=== PATIENT | female | born 1985 | race Caucasian/White ===

== ENCOUNTER 2016-04-16 05:49 | Day surgery (SDC) | payer MEDICAID ==
--- NOTE | 2016-04-15 09:50 | PREOPHP ---
DATE OF ADMISSION: 04/16/2016 She is to be admitted tomorrow, 04/16/2016, for a laparoscopic tubal ligation. HISTORY OF PRESENT ILLNESS: This is a 31-year-old female, 7, para 4 with 3 spontaneous abor tions who has requested sterilization on the basis of multiparity. Laparoscopic tubal ligation was discussed at great length at the office in detail. The alternatives, the benefits, the risks, and p ossible complications of this procedure as well as the 1% failure rate of it was discussed in detail . She was allowed to ask questions, and all her questions were answered to her satisfaction, and tyrese barragan signed the appropriate surgical informed consent. PAST MEDICAL HISTORY: The patient denies any medical problems. Denies cardiovascular disease, hype rtension, diabetes, renal disease, liver disease, thyroid disease, or neurological problems. ALLERGIES: SHE HAS NO KNOWN ALLERGIES. MEDICATIONS: Takes no medications on a regular basis. FAMILY HISTORY: Noncontributory. REVIEW OF SYSTEMS: A 12-point review of systems is noncontributory. PHYSICAL EXAMINATION: GENERAL: Well-developed and nourished, in no distress, alert and oriented x3. Height 5 feet 3 inch es and a weight 153 pounds. VITAL SIGNS: Showed the temperature to be 98, blood pressure 107/72, respirations are 16 per minute , pulse is 72 per minute regular. HEENT: Within normal limits. Pupils are PERRLA. NECK: Supple. Thyroid is nonpalpable. There is no lymphadenopathy. BREASTS: Show no masses or lumps. Nipples are normal. LUNGS: Clear to percussion and auscultation. HEART: Reveals normal sinus rhythm without a murmur. ABDOMEN: Soft without organomegaly or hernias. PELVIC: Normal external genitalia. Vagina is normal. Cervix is normal without lesions. Bimanual exam, the uterus small, firm. There are no adnexal masses present. EXTREMITIES: Lower extremities within normal limits. NEUROLOGIC: Normal. IMPRESSION: Multiparity. The patient desires sterilization, is to be admitted for laparoscopic tub al ligation under general anesthesia, possible laparotomy if necessary tomorrow, 04/16/2016. Dictated By: FAVIAN HUNTER/DINORA Conf#: [id number] DID#: [id number]
[2016-04-15 10:59] VITALS: BMI 27.3
[2016-04-15 13:04] LABS: BASOPHILS % 0.5 % (0.0-2.0); EOSINOPHILS # 0.2 10^3/ul (0.0-0.5); EOSINOPHILS % 2.7 % (0.0-7.0); HEMATOCRIT 39.6 % (37.0-47.0); LYMPHOCYTES # 2.5 10^3/ul (0.8-2.9); LYMPHOCYTES % 34.1 % (15.0-51.0); MEAN CORPUSCULAR HGB CONC 32.8 g/dl (32.0-37.0); MEAN CORPUSCULAR VOLUME 85.3 fl (82.0-101.0); MEAN PLATELET VOLUME 8.4 fl (7.4-10.4); MONOCYTE # 0.5 10^3/ul (0.3-0.9); MONOCYTES % 6.2 % (0.0-11.0); NEUTROPHIL # 4.2 10^3/ul (1.6-7.5); NEUTROPHILS % 56.5 % (39.0-77.0); PLATELET COUNT 322 10^3/UL (140-440); RED BLOOD COUNT 4.65 10^6/ul (4.20-5.40); RED CELL DISTRIBUTION WIDTH 16.4 % (11.5-14.5); UNCORRECTED WBC 7.4 10^3/ul (4.8-10.8); WHITE BLOOD COUNT 7.4 10^3/ul (4.8-10.8)
[2016-04-15 13:05] LABS: ADD UMIC YES; URINE BILIRUBIN (Dip) NEGATIVE (NEGATIVE); URINE BLOOD (Dip) NEGATIVE (NEGATIVE); URINE COLOR LT. YELLOW (YELLOW); URINE GLUCOSE (Dip) NEGATIVE (NEGATIVE); URINE KETONES (Dip) NEGATIVE (NEGATIVE); URINE LEUKOCYTE ESTERASE (Dip) TRACE (NEGATIVE); URINE NITRITE (Dip) NEGATIVE (NEGATIVE); URINE TOTAL PROTEIN (Dip) NEGATIVE (NEGATIVE); URINE UROBILINOGEN (Dip) 0.2 E.U./dL (0.1-1.0)
[2016-04-15 13:10] LABS: ALBUMIN 4.3 g/dl (3.3-4.9); CONDITION 1; LH ANALYZER COMMENTS 1
[2016-04-15 13:13] LABS: URINE RBCS 0-2 /HPF (0)
[2016-04-15 13:13] LABS: BILIRUBIN,INDIRECT 0.3 mg/dl (0-1.1); BILIRUBIN,TOTAL 0.3 mg/dl (0.2-1.3)
[2016-04-15 13:14] LABS: ALBUMIN/GLOBULIN RATIO 1.02; TOTAL PROTEIN 8.5 g/dl (6.1-8.1)
[2016-04-15 13:19] LABS: INR 0.86; PROTIME 11.7 Sec (12.2-14.2); PT RATIO 0.9
[2016-04-15 13:20] LABS: PARTIAL THROMBOPLASTIN TIME 28.4 Sec (25.0-35.0)
[2016-04-15 13:28] LABS: POTASSIUM 3.5 mmol/L (3.5-5.1)
[2016-04-15 13:30] LABS: CALCIUM 9.7 mg/dl (8.4-10.2); CREATININE 0.76 mg/dl (0.44-1.00)
[~2016-04-16] VITALS: Ht 160 cm; Wt 71.9 kg
[2016-04-16] VITALS (10 sets, daily range): BP systolic 97–115; BP diastolic 49–66; PULSE 62–88; RESP 11–18; Ht 160 cm; Wt 71.9 kg
[2016-04-16] MEDS ORDERED: PRENAT PO (06:33)
[2016-04-16] MEDS ORDERED: LIDOCAINE 100 MG SYRINGE ONE (07:25)
[2016-04-16] MEDS ORDERED: PROPOFOL 20 ML ONE (07:25)
[2016-04-16] MEDS ORDERED: GLYCOPYRROLATE 0.4 MG INJ ONE (07:25)
[2016-04-16] MEDS ORDERED: FENTAnyl 50 MCG/ML VIAL ONE ×2 (07:25→08:02)
[2016-04-16] MEDS ORDERED: MIDAZOLAM 1 MG/ML 2 ML INJ ONE (07:25)
[2016-04-16] MEDS ORDERED: ROCURONIUM 50 MG INJ ONE (07:25)
[2016-04-16] MEDS ORDERED: DEXAMETHASONE 4 MG/ML 1 ML INJ ONE (07:25)
[2016-04-16] MEDS ORDERED: CEFAZOLIN 1 GM INJ ONE (07:25)
[2016-04-16] MEDS ORDERED: NEOSTIGMINE 3 MG/3 ML SYRINGE ONE (07:25)
[2016-04-16] MEDS ORDERED: ONDANSETRON 4 MG INJ ONE (07:25)
[2016-04-16] MEDS ORDERED: BUPIVACAINE 0.5%/EPI (SDV) 30 ML INJ ONE (07:26)
[2016-04-16] MEDS ORDERED: KETOROLAC 30 MG INJ ONE (08:02)
[2016-04-16] MEDS ORDERED: LACTATED RINGER'S 1,000 ML IV SCH (08:18)
[2016-04-16] MEDS ORDERED: METOCLOPRAMIDE 10 MG INJ ONE (08:28)
[2016-04-16] MEDS ORDERED: IBUPROFEN 600 MG TAB PO PRN (08:30)
[2016-04-16] MEDS ORDERED: ONDANSETRON 4 MG INJ IV PRN ×2 (08:30→09:00)
[2016-04-16] MEDS ORDERED: morphine 2 MG INJ IV PRN (08:30)
[2016-04-16] MEDS ORDERED: ACETAMINOPHEN 325 MG TAB PO PRN (08:30)
[2016-04-16] MEDS ORDERED: OXYCODONE/ACETAMINOPHEN (5/325) TAB PO PRN ×2 (08:30)
[2016-04-16] MEDS ORDERED: HYDROmorphONE (0.2 MG/ML) 10ML SYG IV ONE (08:37)
[2016-04-16] MEDS ORDERED: FENTAnyl 50 MCG/ML VIAL IV PRN (09:00)
[2016-04-16] MEDS ORDERED: HYDROmorphONE (0.2 MG/ML) 10ML SYG IV PRN ×3 (09:00)
[2016-04-16] MEDS ORDERED: METOCLOPRAMIDE 10 MG INJ IV PRN (09:00)
--- NOTE | 2016-04-16 12:20 | OPR ---
DATE OF OPERATION: 04/16/2016 PREOPERATIVE DIAGNOSIS: Multiparity, voluntary sterilization. POSTOPERATIVE DIAGNOSIS: Multiparity, voluntary sterilization. OPERATION PERFORMED: Laparoscopic bilateral tubal ligation. SURGEON: Favian Lopez MD. ANESTHESIA: General. ANESTHESIOLOGIST: Dr. Acosta. ESTIMATED BLOOD LOSS: Negligible. COMPLICATIONS: None. SPECIMENS: None. PROCEDURE AND FINDINGS: With the patient under general anesthesia, she was laid on the table in the dorsal lithotomy position. Her abdomen, upper thighs, perineum and vagina were prepped with Betadi ne and then after 3 minutes, she was draped in the usual sterile fashion. She was straight cathete rized and emptied the bladder. A small 5 mm incision was done at the level of the umbilicus. Throu gh this incision and while we were tenting up the anterior abdominal wall, the Veress needle was ins erted. Once the tip of the needle was ascertained to be intraperitoneal by the hanging drop of sali ne technique, it was connected to the CO2 insufflator. Good pneumoperitoneum was obtained. The nee dle was then removed and a 5 mm trocar was passed in while we were tenting up the anterior abdominal wall. Through this port now the 5 mm laparoscope with the endocamera was inserted. The patient wa s placed in Trendelenburg position. A second port was installed in the hypogastric area under direc t vision without any problems. Through this second port the Kleppinger clamp with the gyrus device at 35 schmidt of current was connected. The left tube was picked up in its mid portion and burned thr ough and through for 1.5 cm. The same was repeated on the contralateral side. Pictures were taken for documentation. There was no bleeding. All the instruments were then removed from the patient's abdomen as well as much CO2 as was possible. The incisions were infiltrated with 0.5% Marcaine wit h epinephrine, a total of 20 mL. These were closed with 4-0 Monocryl. Band-Aids were applied and t he patient was taken to recovery room with all vital signs stable. EBL was negligible. Needle, spo nge and instrument count at the end of the procedure was correct twice. Dictated By: FAVIAN HUNTER/NTS Conf#: [id number] DID#: [id number]
== END 2016-04-16 10:00 | disposition home or self-care (01) ==
LOC: SDS 05:49
PROVIDERS: ATTEND Specialist
DX: Z30.2 Encounter for sterilization (principal)
CPT/HCPCS: 58670; 80053; 81001; 84703; 85025; 85610; 85730; 86850; 86900; 86901; J0690; J1100; J1170; J1885; J2001; J2250; J2405; J2710; J2765; J3010; Z7512; Z7610; 81003